=== PATIENT | male | born 1980 | race African-American/Black ===

== ENCOUNTER 2024-12-21 21:02 | Emergency (ER) | payer SELFPAY ==
[~2024-12-21] VITALS: Ht 175.3 cm; Wt 81.0 kg
[2024-12-21 21:35] LABS: BASOPHILS % (AUTO) 0.5 % (0.0-2.0); EOSINOPHILS % (AUTO) 0 % (1.0-6.0); HEMATOCRIT 44.8 % (41-53); HEMOGLOBIN 14.8 g/dL (13.5-17.5); LYMPHOCYTES % (AUTO) 11.5 % (22.0-44.0); MEAN CORPUSCULAR HEMOGLOBIN 26.8 pg (26.0-34.0); MEAN CORPUSCULAR HGB CONC 32.9 G/dL (31.0-37.0); MEAN CORPUSCULAR VOLUME 81 fL (80-100); MONOCYTES # (AUTO) 0.9 K/uL (0.1-1.0); MONOCYTES % (AUTO) 10.3 % (2.0-9.0); NEUTROPHILS # (AUTO) 6.5 K/uL (1.8-7.7); NEUTROPHILS % (AUTO) 77.7 % (40.0-70.0); PLATELET COUNT (AUTO) 143 K/uL (150-450); RED CELL DISTRIBUTION WIDTH 14.9 % (11.5-14.5); WHITE BLOOD COUNT (AUTO) 8.4 K/uL (4.5-11.0)
[2024-12-21 21:36] LABS: GLUCOMETER DEV NAME(LOC) ER.7; GLUCOSE,POINT OF CARE 130 MG/DL (70-110)
[2024-12-21 21:37] LABS: CALCIUM, TOTAL 9.1 mg/dL (8.8-10.5); CREATININE 1.98 mg/dL (0.60-1.30); POTASSIUM 3.9 mmol/L (3.5-5.1)
[2024-12-21 21:38] LABS: LIPASE 24 U/L (16-77)
[2024-12-21 21:39] LABS: HEMOGLOBIN A1C 5.7 % (3.8-5.6)
[2024-12-21 21:41] LABS: ALBUMIN 3.8 g/dL (3.4-5.0); CHOL/HDL RATIO 1.7 (4.2-7.3); TOTAL PROTEIN, SERUM 7.9 g/dL (6.4-8.2)
[2024-12-21 21:44] LABS: PROTHROMBIN TIME 10.7 SEC (9.4-11.6)
[2024-12-21 21:45] LABS: TROPONIN I-HIGH SENSITIVITY 155 ng/L (<76)
[2024-12-21] MEDS: SODIUM CHLORIDE 0.9% 2,000 ML IV ONE (21:45)
[2024-12-21 21:48] LABS: LACTIC ACID 3.4 mmol/L (0.4-2.0)
[2024-12-21] MEDS ORDERED: IOHEXOL 350 MG/ML 100 ML VIAL ONE (21:52)
[2024-12-21] MEDS ORDERED: SODIUM CHLORIDE 0.9% 100 ML ONE (21:52)
[2024-12-21 21:58] LABS: ALCOHOL, BLOOD (SERUM) < 3 mg/dL (0-10)
[2024-12-21] MEDS ORDERED: NiCARDipine HCL 25 MG in SODIUM CHLORIDE 0.9% 240 ML IV PRN (22:00)
[2024-12-21] MEDS: NiCARDipine HCL 25 MG in SODIUM CHLORIDE 0.9% 240 ML IV PRN (22:04)
[2024-12-21] MEDS ORDERED: LevETIRAcetam 1,000 MG in DEXTROSE 5%-WATER 100 ML IV ONE (22:30)
[2024-12-21] MEDS: LevETIRAcetam 1,000 MG in DEXTROSE 5%-WATER 100 ML IV ONE (22:38)
[2024-12-21 22:43] LABS: APPEARANCE,URINE CLEAR (CLEAR); BILIRUBIN,URINE NEGATIVE (NEGATIVE); COLOR,URINE LIGHT YELLOW (YELLOW); GLUCOSE, URINE (UA) 70-100 mg/dL (NEGATIVE); KETONES,URINE NEGATIVE (NEGATIVE); LEUKOCYTE ESTERASE ,URINE NEGATIVE (NEGATIVE); NITRATE,URINE NEGATIVE (NEGATIVE); OCCULT BLOOD,URINE TRACE (NEGATIVE); PH,URINE 5.5 (5.0-8.0); PH,URINE DRUG SCREEN 5.5 (5.0-8.0); PROTEIN,URINE TRACE mg/dL (NEGATIVE); SPECIFIC GRAVITIY, URINE 1.036 (1.003-1.030); UROBILINOGEN,URINE <=1.0 mg/dL (<=1.0)
[2024-12-21 22:51] LABS: ALCOHOL, URINE DRUG SCREEN NEGATIVE (NEGATIVE); AMPHET/METH SCREEN,URINE NEGATIVE (NEGATIVE); BARBITURATE SCREEN, URINE NEGATIVE (NEGATIVE); BENZODIAZEPINES SCREEN,URINE NEGATIVE (NEGATIVE); CANNABINOID SCREEN,URINE NEGATIVE (NEGATIVE); COCAINE SCREEN,URINE NEGATIVE (NEGATIVE); METHADONE SCREEN, URINE NEGATIVE (NEGATIVE); OPIATE SCREEN,URINE NEGATIVE (NEGATIVE); PHENCYCLIDINE SCREEN,URINE NEGATIVE (NEGATIVE)
[2024-12-21 23:09] LABS: RBC,URINE 0-2 /HPF (0-2)
[2024-12-21 23:10] LABS: BACTERIA,URINE None Seen /HPF (None Seen); SQUAMOUS EPITHELIAL CELL,UR Rare /LPF (None Seen); WBC,URINE None Seen /HPF (0-5)
[2024-12-22] MEDS: ACETAMINOPHEN 1000 MG/ISO-OSM 100 ML IV ONE (00:40)
[2024-12-22 01:18] VITALS: RESP 25; TEMP 100.8; O2SAT 94
[2024-12-22 01:45] VITALS: BP 137/63; PULSE 80
== END 2024-12-22 02:55 | disposition short-term general hospital (02) ==
LOC: EMS 21:02
DX: I61.8 Other nontraumatic intracerebral hemorrhage (principal); Q27.39 Arteriovenous malformation, other site
CPT/HCPCS: 99291; 70496; 96365; 96366; 71045; 96375 ×2; 80061; 80053; 81001; 82962; 83036; 83605; 83690; 84484; 85025; 85610; 85730; 36415; 70498; 82948; 93005; 51702; 80307; 70450; G0480; Q9967; J3490; J7060; J7050 ×2; J0131; J0712